=== PATIENT | female | born 1995 | race Caucasian/White ===

== ENCOUNTER → 2016-10-31 | Outpatient (CLI) | payer BC | LOC: FIMAGING 17:00 | PROVIDERS: ATTEND Family Medicine | DX: J40 Bronchitis, not specified as acute or chronic (principal); J45.909 Unspecified asthma, uncomplicated; M41.84 Other forms of scoliosis, thoracic region ==

== ENCOUNTER → 2016-11-15 | Outpatient (CLI) | payer BC | LOC: FIMAGING 14:42 | PROVIDERS: ATTEND Family Medicine | DX: J45.909 Unspecified asthma, uncomplicated (principal); Q67.7 Pectus carinatum; M41.84 Other forms of scoliosis, thoracic region ==

== ENCOUNTER 2017-07-31 12:46 | Emergency (ER) | payer BC, OTHER ==
[2017-07-31] MEDS ORDERED: ACETAMINOPHEN 325 MG TAB PO ONE (13:21)
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
[2017-07-31 14:32] VITALS: BP 110/75
== END 2017-07-31 14:30 | disposition home or self-care (01) ==
DX: S73.102A Unspecified sprain of left hip, initial encounter (principal); J45.909 Unspecified asthma, uncomplicated; V13.9XXA Unspecified pedal cyclist injured in collision with car, pick-up truck or van in traffic accident, initial encounter; Y92.410 Unspecified street and highway as the place of occurrence of the external cause; Y99.8 Other external cause status; Y93.89 Activity, other specified

== ENCOUNTER 2017-07-31 20:47 | Emergency (ER) | payer BC, OTHER ==
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
[2017-07-31 22:08] VITALS: BP 105/68
== END 2017-07-31 22:06 | disposition home or self-care (01) ==
DX: S09.90XA Unspecified injury of head, initial encounter (principal); J45.909 Unspecified asthma, uncomplicated; V13.9XXA Unspecified pedal cyclist injured in collision with car, pick-up truck or van in traffic accident, initial encounter

== ENCOUNTER 2017-08-05 19:30 | Emergency (ER) | payer BC, OTHER ==
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
[2017-08-05 22:43] VITALS: BP 105/60
== END 2017-08-05 22:42 | disposition home or self-care (01) ==
DX: S06.0X1D Concussion with loss of consciousness of 30 minutes or less, subsequent encounter (principal); J45.909 Unspecified asthma, uncomplicated; V13.4XXD Pedal cycle driver injured in collision with car, pick-up truck or van in traffic accident, subsequent encounter

== ENCOUNTER → 2017-10-01 | Outpatient (CLI) | payer BC | LOC: FIMAGING 16:46 | PROVIDERS: ATTEND Physician Assistant | DX: Q65.89 Other specified congenital deformities of hip (principal) ==